=== PATIENT | female | born 1970 | race Two or more races ===

== ENCOUNTER 2017-06-10 22:41 | Inpatient (IN) | payer OTHER ==
[~2017-06-10] VITALS: Ht 167.6 cm; Wt 125.4 kg
[2017-06-11 00:39] LABS: BASOPHIL % 0.4 % (0-2); PLATELET COUNT 207 x10^3mcL (130-400); RED CELL DISTRIBUTION WIDTH 12.8 % (11.5-14.5)
[2017-06-11 00:49] LABS: CARBON DIOXIDE 26.7 mmol/L (21-32); CHLORIDE SERUM 105 mmol/L (98-107); CREATININE SERUM 0.7 mg/dL (0.6-1.0); GFR1 > 60 mL/min; GLUCOSE SERUM 118 mg/dL (74-106); POTASSIUM SERUM 3.9 mmol/L (3.5-5.1); SODIUM SERUM 138 mmol/L (136-145)
[2017-06-11 00:55] LABS: ALBUMIN 3.5 g/dL (3.4-5.0); ALKALINE PHOSPHATASE 50 U/L (46-116); ALT/SGPT 28 U/L (14-59); AST/SGOT 16 U/L (15-37); BILIRUBIN TOTAL 0.18 mg/dL (0.20-1.00); TOTAL PROTEIN, SERUM 7.3 g/dL (6.4-8.2)
[2017-06-11 01:47] LABS: UA SPECIFIC GRAVITY <=1.005 (1.005-1.035); microscopic required? YES; urine erythrocyte 1+ (NEGATIVE)
[2017-06-11] MEDS ORDERED: MOT600 PO (01:57)
[2017-06-11 02:36] VITALS: BP 137/79
[2017-06-11 04:05] LABS: T3 TOTAL 1.29 ng/mL
[2017-06-11 04:10] LABS: AMYLASE 48 U/L (25-115); LIPASE 289 IU/L (73-393); PHOSPHOROUS 3.8 mg/dL (2.5-4.9)
[2017-06-11 04:15] LABS: CHOLESTEROL 205 mg/dL (<200); CHOLESTEROL/HDL RATIO 6.2; HDL CHOLESTEROL 33 mg/dL (40-60); TRIGLYCERIDES 468 mg/dL (<150)
[2017-06-11 04:17] LABS: FREE T4 1.07 ng/dL (0.76-1.46); T4(THYROXINE) 8.8 ug/dL (4.7-13.3)
[2017-06-11 05:55] VITALS: BP 134/68
[2017-06-11 07:04] LABS: AMPHETAMINE QUAL UR NONE DETECTED (NEG <=1000)
[2017-06-11 08:00] VITALS: BP 133/87
[2017-06-11 13:01] VITALS: BP 142/85
[2017-06-11 17:46] VITALS: BP 145/73
[2017-06-11 22:10] VITALS: BP 118/69
[2017-06-12 05:17] VITALS: BP 135/79
[2017-06-12 06:33] LABS: BASOPHIL % 0.6 % (0-2); PLATELET COUNT 181 x10^3mcL (130-400); RED CELL DISTRIBUTION WIDTH 12.6 % (11.5-14.5)
[2017-06-12 07:06] LABS: CALCIUM 8.6 mg/dL (8.5-10.1); CHLORIDE SERUM 108 mmol/L (98-107); CREATININE SERUM 0.7 mg/dL (0.6-1.0); GFR1 > 60 mL/min; GLUCOSE SERUM 101 mg/dL (74-106); SODIUM SERUM 141 mmol/L (136-145)
[2017-06-12 08:22] VITALS: BP 131/85
[2017-06-12 11:59] VITALS: BP 148/85
[2017-06-12] MEDS ORDERED: ECO81 PO (13:59)
[2017-06-12] MEDS ORDERED: LIPI20 PO (13:59)
[2017-06-12 14:05] VITALS: BP 148/85
== END 2017-06-12 15:36 | disposition home or self-care (01) | DRG 48 ==
LOC: ED 22:41 → DU 06-11 01:47
PROVIDERS: Emergency Medicine; Family Medicine
DX: G90.8 Other disorders of autonomic nervous system (principal); N17.0 Acute kidney failure with tubular necrosis; E78.2 Mixed hyperlipidemia; W18.39XA Other fall on same level, initial encounter; M54.30 Sciatica, unspecified side; R31.9 Hematuria, unspecified; Y93.89 Activity, other specified; Y92.098 Other place in other non-institutional residence as the place of occurrence of the external cause; Y99.8 Other external cause status; Z90.710 Acquired absence of both cervix and uterus
CPT/HCPCS: 83880; 84439; J7030; J8597; Q0092